=== PATIENT | male | born 1980 | race Caucasian/White ===

== ENCOUNTER 2017-01-31 17:36 | Inpatient (IN) | payer MEDICAID ==
[~2017-01-31] VITALS: Ht 177.8 cm; Wt 79.8 kg
[2017-01-31 18:30] VITALS: BP 142/86
[2017-01-31 18:34] LABS: ANION GAP 10 mmol/L (5-15); CARBON DIOXIDE 26 MMOL/L (21-32); CHLORIDE 106 MMOL/L (98-107); CREATININE 1.2 MG/DL (0.55-1.30); GLOMERULAR FILTRATION RATE > 60 mL/min (>60); POTASSIUM 3.7 MMOL/L (3.5-5.1); SODIUM 142 MMOL/L (136-145)
[2017-01-31 18:37] LABS: AMMONIA 28 umol/L (11-32)
[2017-01-31 18:40] LABS: BASOPHILS % (AUTO) 1.2 % (0.0-2.0); EOSINOPHILS % (AUTO) 1.6 % (0.0-3.0); LYMPHOCYTES % (AUTO) 13.7 % (20.0-45.0); MEAN CORPUSCULAR HEMOGLOBIN 28.8 PG (27.0-31.0); MEAN CORPUSCULAR HGB CONC 32.5 G/DL (32.0-36.0); MEAN CORPUSCULAR VOLUME 89 FL (80-99); MEAN PLATELET VOLUME 7.9 FL (6.5-10.1); MONOCYTES % (AUTO) 9.8 % (1.0-10.0); NEUTROPHILS % (AUTO) 73.8 % (45.0-75.0); PLATELET COUNT 228 K/UL (150-450); RED BLOOD COUNT 5.03 M/UL (4.70-6.10); RED CELL DISTRIBUTION WIDTH 10.8 % (11.6-14.8); WHITE BLOOD COUNT 10.9 K/UL (4.8-10.8)
[2017-01-31 18:46] LABS: ALANINE AMINOTRANSFERASE 41 U/L (12-78); ALBUMIN/GLOBULIN RATIO 1.4 (1.0-2.7); ALCOHOL < 3 mg/dL; ASPARTATE AMINO TRANSFERASE 68 U/L (15-37); THYROID STIMULATING HORMONE 2.824 uiU/mL (0.358-3.740); TOTAL PROTEIN 7.1 G/DL (6.4-8.2)
[2017-01-31 19:02] LABS: ACETAMINOPHEN < 2 MCG/ML (10-30)
[2017-01-31] MEDS ORDERED: Haloperidol 5mg/ml Inj IM ONE (19:15)
[2017-01-31] MEDS ORDERED: Lactulose 200 GM in NS Irrig 1000ml 700 ML RECTAL ONE (19:15)
[2017-01-31 19:40] VITALS: BP 146/105
--- NOTE | 2017-01-31 19:41 | Emergency Room Report ---
History of Present Illness General Chief Complaint: Altered Level of Consciousness Source: Patient, EMS Present Illness HPI Patient is a 40-year-old male brought in by EMS after increased altered status. Patient was reportedly found lying in the street. The patient had a known past medical history. History is markedly limited by patient's initial mental status. Allergies: Coded Allergies: UNABLE TO ASSESS (Unverified , 01/31/17) Patient History Past Medical History: see triage record Reviewed Nursing Documentation: PMH: Agreed, PSxH: Agreed Nursing Documentation-PMH Past Medical History Deferred: Pt Cognitively Impaired Review of Systems All Other Systems: negative except mentioned in HPI Physical Exam Vital Signs Date Time Temp Pulse Resp B/P (MAP) Pulse Ox O2 Delivery O2 Flow Rate FiO2 01/31/17 17:24 99.5 119 18 169/70 99 Room Air Sp02 EP Interpretation: reviewed, normal General Appearance: normal inspection, well appearing, no apparent distress, alert, GCS 15 Head: atraumatic Eyes: bilateral eye other - hippus, pupils mid position ENT: normal ENT inspection, hearing grossly normal Neck: normal inspection, full range of motion, supple, no bony tend Respiratory: normal inspection, lungs clear, normal breath sounds, no respiratory distress, no retraction, no wheezing Cardiovascular #1: regular rate, rhythm, no edema Gastrointestinal: normal inspection, normal bowel sounds, non tender, soft, no guarding, no hernia Genitourinary: no CVA tenderness Musculoskeletal: normal inspection, back normal, normal range of motion Neurologic: normal inspection, alert, rail crew member III-XII nml as tested, other - waxy movements of extremiteis Psychiatric: normal inspection, judgement/insight normal, mood/affect normal Skin: normal inspection, normal color, no rash Medical Decision Making Diagnostic Impression: Primary Impression: Encephalopathy Additional Impression: Altered mental state ER Course Patient presented for altered mental status. Differential diagnosis included but was not limited to ischemic stroke, subarachnoid hemorrhage, hypoglycemia, spinal cord injury, neurodegenerative disorder, urinary tract infection, hypoxemia. Because of complexity of patient's case laboratory testing and imaging studies were ordered. The CT the head read by radiology showed subtle hypodensity medially with a left vanessa which may be artifact in relation to beam hardening. There is no acute bleed midline shift or mass effect noted. Patient was given IV fluids as well as Haldol. Subsequently patient had some improvement in his rresponsiveness, lactulose was ordered for encephalopathy. .Dr. Calvin Rios was contacted for inpatient management due to panel physician. Labs Test 01/31/17 18:00 White Blood Count 10.9 K/UL (4.8-10.8) Red Blood Count 5.03 M/UL (4.70-6.10) Hemoglobin 14.5 G/DL (14.2-18.0) Hematocrit 44.6 % (42.0-52.0) Mean Corpuscular Volume 89 FL (80-99) Mean Corpuscular Hemoglobin 28.8 PG (27.0-31.0) Mean Corpuscular Hemoglobin Concent 32.5 G/DL (32.0-36.0) Red Cell Distribution Width 10.8 % (11.6-14.8) Platelet Count 228 K/UL (150-450) Mean Platelet Volume 7.9 FL (6.5-10.1) Neutrophils (%) (Auto) 73.8 % (45.0-75.0) Lymphocytes (%) (Auto) 13.7 % (20.0-45.0) Monocytes (%) (Auto) 9.8 % (1.0-10.0) Eosinophils (%) (Auto) 1.6 % (0.0-3.0) Basophils (%) (Auto) 1.2 % (0.0-2.0) Sodium Level 142 MMOL/L (136-145) Potassium Level 3.7 MMOL/L (3.5-5.1) Chloride Level 106 MMOL/L (98-107) Carbon Dioxide Level 26 MMOL/L (21-32) Anion Gap 10 mmol/L (5-15) Blood Urea Nitrogen 26 mg/dL (7-18) Creatinine 1.2 MG/DL (0.55-1.30) Estimat Glomerular Filtration Rate > 60 mL/min (>60) Glucose Level 124 MG/DL (74-106) Lactic Acid Level 1.30 mmol/L (0.66-2.22) Calcium Level 9.0 MG/DL (8.5-10.1) Total Bilirubin 0.7 MG/DL (0.2-1.0) Aspartate Amino Transf (AST/SGOT) 68 U/L (15-37) Alanine Aminotransferase (ALT/SGPT) 41 U/L (12-78) Alkaline Phosphatase 54 U/L (46-116) Ammonia 28 umol/L (11-32) Total Protein 7.1 G/DL (6.4-8.2) Albumin 4.2 G/DL (3.4-5.0) Globulin 2.9 g/dL Albumin/Globulin Ratio 1.4 (1.0-2.7) Thyroid Stimulating Hormone (TSH) 2.824 uiU/mL (0.358-3.740) Salicylates Level 2.3 ug/mL (2.8-20) Urine Opiates Screen Negative (NEGATIVE) Acetaminophen Level < 2 MCG/ML (10-30) Urine Barbiturates Screen Negative (NEGATIVE) Phencyclidine (PCP) Screen Negative (NEGATIVE) Urine Amphetamines Screen Negative (NEGATIVE) Urine Benzodiazepines Screen Negative (NEGATIVE) Urine Cocaine Screen Negative (NEGATIVE) Urine Marijuana (THC) Screen Negative (NEGATIVE) Serum Alcohol < 3 mg/dL Last Vital Signs Date Time Temp Pulse Resp B/P (MAP) Pulse Ox O2 Delivery O2 Flow Rate FiO2 01/31/17 18:30 100 17 142/86 98 Room Air 01/31/17 17:44 99.6 Status: unchanged Disposition: ADMITTED INPATIENT Condition: Stable Eliot Acharya Jan 31, 2017 19:41
[2017-01-31 20:45] VITALS: BP 121/75
[2017-01-31 22:25] VITALS: BP 115/77
[2017-02-01] VITALS: BP 113/65
[2017-02-01] MEDS ORDERED: Zolpidem 5mg tab ORAL PRN (01:30)
[2017-02-01 04:00] VITALS: BP 117/78
[2017-02-01 08:00] VITALS: BP 153/92
--- NOTE | 2017-02-01 08:07 | History & Physical ---
History and Physical History & Physicial 36 year old male admitted with ALOC. work up negative so far. Patient denies head trauma. head Ct and urine tox screen negative no other complaints no fevers, ill contacts, recent illness PMH negative MEDS/ALLERGIES negative SOCIAL HISTORY homeless PHYSICAL WDWN NAD clear breath sounds bilaterally without rhonchi or wheeze [id number] without MRG NABS nontender no HSM no CCE eyes open; responds with one word answers nonfocal vitals stable Laboratory Tests Test 01/31/17 18:00 White Blood Count 10.9 K/UL (4.8-10.8) H Red Blood Count 5.03 M/UL (4.70-6.10) Hemoglobin 14.5 G/DL (14.2-18.0) Hematocrit 44.6 % (42.0-52.0) Mean Corpuscular Volume 89 FL (80-99) Mean Corpuscular Hemoglobin 28.8 PG (27.0-31.0) Mean Corpuscular Hemoglobin Concent 32.5 G/DL (32.0-36.0) Red Cell Distribution Width 10.8 % (11.6-14.8) L Platelet Count 228 K/UL (150-450) Mean Platelet Volume 7.9 FL (6.5-10.1) Neutrophils (%) (Auto) 73.8 % (45.0-75.0) Lymphocytes (%) (Auto) 13.7 % (20.0-45.0) L Monocytes (%) (Auto) 9.8 % (1.0-10.0) Eosinophils (%) (Auto) 1.6 % (0.0-3.0) Basophils (%) (Auto) 1.2 % (0.0-2.0) Sodium Level 142 MMOL/L (136-145) Potassium Level 3.7 MMOL/L (3.5-5.1) Chloride Level 106 MMOL/L (98-107) Carbon Dioxide Level 26 MMOL/L (21-32) Anion Gap 10 mmol/L (5-15) Blood Urea Nitrogen 26 mg/dL (7-18) H Creatinine 1.2 MG/DL (0.55-1.30) Estimat Glomerular Filtration Rate > 60 mL/min (>60) Glucose Level 124 MG/DL (74-106) H Lactic Acid Level 1.30 mmol/L (0.66-2.22) Calcium Level 9.0 MG/DL (8.5-10.1) Total Bilirubin 0.7 MG/DL (0.2-1.0) Aspartate Amino Transf (AST/SGOT) 68 U/L (15-37) H Alanine Aminotransferase (ALT/SGPT) 41 U/L (12-78) Alkaline Phosphatase 54 U/L (46-116) Ammonia 28 umol/L (11-32) Total Protein 7.1 G/DL (6.4-8.2) Albumin 4.2 G/DL (3.4-5.0) Globulin 2.9 g/dL Albumin/Globulin Ratio 1.4 (1.0-2.7) Thyroid Stimulating Hormone (TSH) 2.824 uiU/mL (0.358-3.740) Salicylates Level 2.3 ug/mL (2.8-20) L Urine Opiates Screen Negative (NEGATIVE) Acetaminophen Level < 2 MCG/ML (10-30) L Urine Barbiturates Screen Negative (NEGATIVE) Phencyclidine (PCP) Screen Negative (NEGATIVE) Urine Amphetamines Screen Negative (NEGATIVE) Urine Benzodiazepines Screen Negative (NEGATIVE) Urine Cocaine Screen Negative (NEGATIVE) Urine Marijuana (THC) Screen Negative (NEGATIVE) Serum Alcohol < 3 mg/dL IMPRESSION ALOC acute encephalopathy PLAN ot, pt, speech hydration MRI dc once stable SOCRATES GRACIA Feb 01, 2017 08:07
[2017-02-01] MEDS: Heparin 5000 units/ml inj SUBQ SCH ×2 (08:45→20:38)
--- NOTE | 2017-02-01 10:34 | Diagnostic Imaging Report ---
Indication: Altered mental status Technique: Continuous helical CT scanning of the head was performed utilizing automated exposure control without intravenous contrast material. Axial and coronal reconstructions were obtained. Comparison: None CT dose: Total DLP 1530 mGycm; CTDI vol 70.4 mGy Findings: There is no acute intracranial hemorrhage, mass effect or cortical edema. The ventricles, cisterns and sulci are within normal limits. There is a questionable small area of hypodensity in the left vanessa. Sellar and suprasellar regions are grossly unremarkable. Visualized mastoid air cells and paranasal sinuses are unremarkable. No focal lesions of the bony calvarium or soft tissues of the scalp are seen. Impression: No intracranial hemorrhage or cortical edema. Questionable small hypodense area in the left vanessa may be artifactual. Acuity indeterminate lacunar infarct cannot be excluded. Further evaluation with MRI recommended as indicated. The CT scanner at [facility] is accredited by the [employer] and the scans are performed using protocols designed to limit radiation exposure to as low as reasonably achievable to attain images of sufficient resolution adequate for diagnostic evaluation.
[2017-02-01 12:00] VITALS: BP 129/81
[2017-02-01 16:00] VITALS: BP 138/80
[2017-02-01 20:00] VITALS: BP 114/85
[2017-02-02] VITALS: BP 131/77
[2017-02-02 04:00] VITALS: BP 126/78
--- NOTE | 2017-02-02 07:49 | General Progress Note ---
Assessment/Plan Assessment/Plan IMPRESSION ALOC acute encephalopathy PLAN ot, pt, speech hydration MRI pending psych evaluation dc once stable Subjective Allergies: Coded Allergies: UNABLE TO ASSESS (Unverified , 01/31/17) Subjective psych evaluation called Objective Last 24 Hour Vital Signs Date Time Temp Pulse Resp B/P (MAP) Pulse Ox O2 Delivery O2 Flow Rate FiO2 02/02/17 04:00 98.1 77 18 126/78 96 Room Air 02/02/17 00:00 97.3 74 21 131/77 97 Room Air 02/01/17 20:00 97.7 72 21 114/85 95 Room Air 02/01/17 16:00 97.9 73 19 138/80 97 Room Air 02/01/17 12:00 98.9 90 19 129/81 98 Room Air 02/01/17 08:00 97.9 90 20 153/92 100 Room Air Height (Feet): 5 Height (Inches): 10.00 Weight (Pounds): 176 Objective WDWN NAD clear breath sounds bilaterally without rhonchi or wheeze [id number] without MRG NABS nontender no HSM no CCE nonfocal SOCRATES GRACIA Feb 02, 2017 07:49
[2017-02-02] MEDS: Heparin 5000 units/ml inj SUBQ SCH ×2 (07:53→20:39)
[2017-02-02 08:00] VITALS: BP 118/82
[2017-02-02] MEDS ORDERED: NS 500ML ONE (09:11)
[2017-02-02 12:00] VITALS: BP 142/96
--- NOTE | 2017-02-02 15:33 | Cardiology Report ---
APPROVED REPORT EKG Measurement Heart [id number] Sinus tachycardia Otherwise normal ECG
[2017-02-02 16:00] VITALS: BP 115/76
[2017-02-02 20:00] VITALS: BP 127/74
[2017-02-03] VITALS: BP 125/70
[2017-02-03 04:00] VITALS: BP 128/74
[2017-02-03 08:00] VITALS: BP 127/78
--- NOTE | 2017-02-03 08:09 | General Progress Note ---
Assessment/Plan Assessment/Plan IMPRESSION ALOC acute encephalopathy PLAN ot, pt, speech dc planning per case management MRI pending psych evaluation dc once stable Subjective Allergies: Coded Allergies: UNABLE TO ASSESS (Unverified , 01/31/17) Subjective psych evaluation called not yet seen Objective Last 24 Hour Vital Signs Date Time Temp Pulse Resp B/P (MAP) Pulse Ox O2 Delivery O2 Flow Rate FiO2 02/03/17 04:00 98.4 62 17 128/74 98 Room Air 02/03/17 00:51 Room Air 02/03/17 00:00 98.2 70 20 125/70 96 Room Air 02/02/17 20:00 Room Air 02/02/17 20:00 98.7 71 20 127/74 95 Room Air 02/02/17 16:00 98.3 71 20 115/76 98 Room Air 02/02/17 12:00 98.2 90 20 142/96 98 Room Air Intake and Output 02/03/17 02/04/17 19:00 07:00 Intake Total 100 ml Balance 100 ml IV Total 100 ml Height (Feet): 5 Height (Inches): 10.00 Weight (Pounds): 176 Objective WDWN NAD clear breath sounds bilaterally without rhonchi or wheeze [id number] without MRG NABS nontender no HSM no CCE nonfocal SOCRATES GRACIA Feb 03, 2017 08:09
[2017-02-03] MEDS: Heparin 5000 units/ml inj SUBQ SCH ×2 (09:00→20:43)
--- NOTE | 2017-02-03 10:48 | Consultation ---
History of Present Illness General Chief Complaint: Altered Level of Consciousness Present Illness HPI 36 year old male admitted with ALOC, during the eval the pt was catatonic and would not cooperate the pt is homeless and does not respond to any questions. I spoke with Terra BAL who is gathering collateral information Allergies: Coded Allergies: UNABLE TO ASSESS (Unverified , 01/31/17) Patient History Healthcare decision maker N Resuscitation status Full Code Advanced Directive on File Past Medical/Surgical History Past Medical/Surgical History: (1) Altered level of consciousness (2) Encephalopathy (3) Altered mental state Review of Systems Psychiatric: Reports: prior hx, anxiety, depressed feelings, emotional problems , hallucinations Physical Exam General Appearance: no apparent distress, alert, confused Neurologic: alert, unresponsiveness, depressed affect Last 24 Hour Vital Signs Date Time Temp Pulse Resp B/P (MAP) Pulse Ox O2 Delivery O2 Flow Rate FiO2 02/03/17 08:00 98.1 74 18 127/78 96 Room Air 02/03/17 04:00 98.4 62 17 128/74 98 Room Air 02/03/17 00:51 Room Air 02/03/17 00:00 98.2 70 20 125/70 96 Room Air 02/02/17 20:00 Room Air 02/02/17 20:00 98.7 71 20 127/74 95 Room Air 02/02/17 16:00 98.3 71 20 115/76 98 Room Air 02/02/17 12:00 98.2 90 20 142/96 98 Room Air Intake and Output 02/03/17 02/04/17 19:00 07:00 Intake Total 100 ml Balance 100 ml IV Total 100 ml Height (Feet): 5 Height (Inches): 10.00 Weight (Pounds): 176 Medications Current Medications Medications (Trade) Dose Ordered Sig/Sid Route PRN Reason Start Time Stop Time Status Last Admin Dose Admin Acetaminophen (Tylenol) 650 mg Q4H PRN ORAL Mild Pain/Temp > 100.5 02/01/17 01:30 03/03/17 01:29 Al Hydroxide/Mg Hydroxide (Mylanta) 30 ml Q4H PRN ORAL dispepsia 02/01/17 01:30 03/03/17 01:29 Heparin Sodium (Porcine) (Heparin 5000 units/ml) 5,000 units EVERY 12 HOURS SUBQ 02/01/17 09:00 03/03/17 08:59 02/02/17 20:39 Pantoprazole (Protonix) 40 mg DAILY ORAL 02/01/17 09:00 03/03/17 08:59 02/02/17 07:52 Sodium Chloride 1,000 ml @ 100 mls/hr Q10H IV 02/01/17 02:00 03/03/17 01:59 02/03/17 03:12 Zolpidem Tartrate (Ambien) 5 mg HSPRN PRN ORAL Insomnia 02/01/17 01:30 02/08/17 01:29 Assessment/Plan Status: stable Status Narrative schizophrenia haldol dec collateral info Vinod Regalado M.D. Feb 03, 2017 10:48
[2017-02-03 12:00] VITALS: BP 122/75
--- NOTE | 2017-02-03 14:24 | Diagnostic Imaging Report ---
Indication: Altered level of consciousness. Patient unable to speak Technique: sagittal T1 fast spin echo, axial T1 FLAIR, axial T2 FLAIR, axial T2 FS PROPELLER, axial T2* GRE, axial diffusion weighted images. ADC and exponential ADC maps generated Comparison: Brain CT 01/31/2017 Findings: No abnormal areas of restricted diffusion to suggest acute infarction. No acute hemorrhage or edema. No mass effect nor midline shift. Normal size ventricles and extra axial CSF spaces. Visualized orbits and sinuses are unremarkable. The vanessa is unremarkable, and no findings to correlate with the abnormality questioned on the recent CT scan are demonstrated. The vascular flow voids are preserved. Impression: Negative. No evidence of acute intracranial bleed, infarct, or mass effect.
[2017-02-03 16:00] VITALS: BP 132/86
[2017-02-03 20:00] VITALS: BP 125/77
[2017-02-04] VITALS: BP 123/69
[2017-02-04 04:05] VITALS: BP 128/72
--- NOTE | 2017-02-04 07:48 | General Progress Note ---
Assessment/Plan Assessment/Plan IMPRESSION ALOC ? psychiatric PLAN ot, pt, speech MRI negative psych evaluation noted dc per CM no acute needs Subjective Allergies: Coded Allergies: UNABLE TO ASSESS (Unverified , 01/31/17) Subjective psych evaluation noted Objective Last 24 Hour Vital Signs Date Time Temp Pulse Resp B/P (MAP) Pulse Ox O2 Delivery O2 Flow Rate FiO2 02/04/17 04:05 98.1 80 19 128/72 96 02/04/17 04:00 Room Air 02/04/17 00:00 98.1 65 20 123/69 95 Room Air 02/04/17 00:00 Room Air 02/03/17 20:00 Room Air 02/03/17 20:00 97.9 77 20 125/77 99 Room Air 02/03/17 16:00 97.7 62 18 132/86 98 02/03/17 16:00 98 Room Air 02/03/17 12:00 98.2 90 18 122/75 98 02/03/17 08:00 98.1 74 18 127/78 96 Room Air Height (Feet): 5 Height (Inches): 10.00 Weight (Pounds): 176 Objective WDWN NAD clear breath sounds bilaterally without rhonchi or wheeze [id number] without MRG NABS nontender no HSM no CCE nonfocal SOCRATES GRACIA Feb 04, 2017 07:48
[2017-02-04 08:00] VITALS: BP 124/79
[2017-02-04] MEDS: Heparin 5000 units/ml inj SUBQ SCH ×2 (09:40→20:33)
[2017-02-04 12:00] VITALS: BP 125/78
[2017-02-04 16:00] VITALS: BP 122/75
[2017-02-04 20:00] VITALS: BP 109/74
[2017-02-05] VITALS: BP 118/77
[2017-02-05 04:00] VITALS: BP 129/83
[2017-02-05 08:15] VITALS: BP 129/78
--- NOTE | 2017-02-05 08:34 | General Progress Note ---
Assessment/Plan Assessment/Plan IMPRESSION ALOC ? psychiatric PLAN dc home rx given per psych recommendations patient with long standing history of psych issues father to pick patient up and return to home setting follow up with psych and PMD after dc patient dc in stable condition Subjective Allergies: Coded Allergies: UNABLE TO ASSESS (Unverified , 01/31/17) Subjective psych evaluation noted d/w CM Objective Last 24 Hour Vital Signs Date Time Temp Pulse Resp B/P (MAP) Pulse Ox O2 Delivery O2 Flow Rate FiO2 02/05/17 04:00 97.5 64 20 129/83 98 Room Air 02/05/17 00:00 98.1 66 18 118/77 100 Room Air 02/05/17 00:00 Room Air 02/04/17 20:00 Room Air 02/04/17 20:00 98.2 63 18 109/74 100 Room Air 02/04/17 16:00 98.0 76 18 122/75 96 02/04/17 12:00 97.9 69 16 125/78 96 Height (Feet): 5 Height (Inches): 10.00 Weight (Pounds): 176 Objective WDWN NAD clear breath sounds bilaterally without rhonchi or wheeze [id number] without MRG NABS nontender no HSM no CCE nonfocal SOCRATES GRACIA Feb 05, 2017 08:34
[2017-02-05] MEDS ORDERED: Haloperidol Decanoate 50mg Inj IM ONE (09:00)
[2017-02-05] MEDS: Heparin 5000 units/ml inj SUBQ SCH (09:00)
--- NOTE | 2017-02-06 00:37 | General Progress Note ---
Assessment/Plan Status: stable Assessment/Plan schizophrenia catatonic type -klonopin 1mg qhs -risperdal 2mg qhs haldol dec 100mg Subjective Date patient seen: Feb 05, 2017 Neurologic/Psychiatric: Reports: anxiety, depressed, emotional problems Allergies: Coded Allergies: UNABLE TO ASSESS (Unverified , 01/31/17) Subjective the pt is more engaged. has cognitive impairments. Objective Last 24 Hour Vital Signs Date Time Temp Pulse Resp B/P (MAP) Pulse Ox O2 Delivery O2 Flow Rate FiO2 02/05/17 08:15 97.1 75 20 129/78 96 Room Air 02/05/17 04:00 97.5 64 20 129/83 98 Room Air Height (Feet): 5 Height (Inches): 10.00 Weight (Pounds): 176 General Appearance: no apparent distress, alert Neurologic: alert, oriented x 3, responsive, depressed affect Vinod Regalado M.D. Feb 06, 2017 00:37
--- NOTE | 2017-02-07 07:43 | Discharge Summary ---
Discharge Summary Hospital Course Date of Admission Jan 31, 2017 at 20:36 Date of Discharge Feb 05, 2017 at 11:00 Admitting Diagnosis altered mental status, encephalopathy HPI Kristian Saldivar is a 36 year old male who was admitted on Jan 31, 2017 at 20:36 for Altered Mental Status,Encephalopathy Hospital Course [id number] Discharge Discharge Disposition Patient was discharged to Home (01) Discharge Diagnoses: Shaunna Figueroa NP Feb 07, 2017 07:43
--- NOTE | 2017-02-07 12:47 | Discharge Summary 2 SIG ---
DATE OF ADMISSION: 01/31/2017 DATE OF DISCHARGE: 02/05/2017 TRIM MASTER OPERATOR: Vinod Regalado M.D. BRIEF HOSPITAL COURSE: The patient is a 36-year-old male who was brought in by EMS for altered level of consciousness. The patient was reportedly found lying in the street. He had unknown past medical history and history was limited due to mental status. On evaluation at ED, head CT showed subtle hypodensity medially with the left vanessa. There was no intracranial hemorrhage or cortical edema. He was given IV hydration. Blood work showed creatinine 1.2 and BUN 26. Urine toxicology was negative. The patient only opens eyes and responds with one-word answer. He was admitted to medical/surgical for encephalopathy. He was continued on IV hydration and PT, OT and psychiatric evaluation was done. The patient was in a catatonic state and would not cooperate and does not respond to any questions. Social service was called in to reach for family members. The patient has [place] based insurance and next of kin was traced. The patient lives in [place]. Family unaware that the patient is currently in [place]. He underwent MRI of the brain that was negative with no evidence of acute intracranial bleed, infarct or mass. The patient has altered level of consciousness secondary to psychiatric issues. He was given Klonopin 1 mg q hs and Risperdal 2 mg q hs. The patient has a longstanding history of psychiatric issue. Family will be picking up the patient and will be returning back home. FINAL DIAGNOSES: 1. Altered level of consciousness/encephalopathy. 2. Schizophrenia, catatonic type. DISPOSITION: The patient was discharged to home. FOLLOWUP INSTRUCTIONS: Advised to follow up with PMD and psychiatry in [place]. Calvin Rios M.D. I have been assigned to dictate discharge summary on this account and I was not involved in the patient's management. Shaunna Figueroa N.P. DR: [id number] JOB#: [id number] CC: [id number]
== END 2017-02-05 11:00 | disposition home or self-care (01) | DRG 52 ==
LOC: EDBD 17:36 → EMR 18:05 → 4E 20:36 → EDBEDREQ 20:48 → 4E 02-02 13:30
DX: G93.40 Encephalopathy, unspecified (principal); F20.2 Catatonic schizophrenia; F41.9 Anxiety disorder, unspecified; Z59.0 Homelessness
CPT/HCPCS: 36415; 70450; 70551; 80053; 80307; 80329; 82140; 83605; 84443; 85025; 87040; 87081; 93005; 99285